=== PATIENT | male | born 1965 | race African-American/Black ===

== ENCOUNTER 2022-05-19 19:59 | Emergency (ER) | payer SELFPAY ==
[~2022-05-19] VITALS: Ht 175.3 cm; Wt 100.0 kg
[2022-05-19 20:15] VITALS: BP 142/78
[2022-05-20] MEDS ORDERED: HALOPERIDOL LACTATE 5MG/ML VIAL IM ONE (00:30)
[2022-05-20] MEDS ORDERED: DIPHENHYDRAMINE 50MG/ML VIAL IM ONE (00:30)
[2022-05-20 01:07] LABS: BASOPHILS % 1.1 % (0.0-2.0); EOSINOPHILS % 2.4 % (0.0-5.0); HEMOGLOBIN. 12.6 g/dL (14.0-18.0); LYMPHOCYTES % 19.2 % (20.0-50.0); MEAN CORPUSCULAR HEMOGLOBIN 28.1 pg (28.0-32.0); MEAN CORPUSCULAR VOLUME 86.8 fL (80.0-94.0); MEAN PLATELET VOLUME 8.4 fl (7.4-10.4); MONOCYTES % 8.4 % (2.0-8.0); NEUTROPHILS % 68.9 % (40.0-76.0); PLATELET 318 x1000/uL (130-400); RED CELL DISTRIBUTION WIDTH 20.2 % (11.6-14.6)
[2022-05-20 01:09] LABS: CHLORIDE 106 mEq/L (98-107)
[2022-05-20 01:16] LABS: ETHANOL BLOOD 28 mg/dL
== END 2022-05-20 04:56 | disposition home or self-care (01) ==
LOC: ER 19:59
DX: F23 Brief psychotic disorder (principal); R07.89 Other chest pain; R06.02 Shortness of breath; I10 Essential (primary) hypertension
CPT/HCPCS: 36415; 80048; 80307; 80320; 80329; 85025; 93005; 96372; 99284; J1200; J1630; G0480

== ENCOUNTER 2022-09-29 06:25 | Emergency (ER) | payer MEDICAID ==
[~2022-09-29] VITALS: Ht 180.3 cm; Wt 100.0 kg
[~2022-09-29 06:25] MED LIST: ATOR20TA PO; DILT240C94 MT; LOSA50TA3 PO; PHEN100C4 MT; TUSSL PO
[2022-09-29] MEDS ORDERED: LOSA50TA41 PO (12:07)
[2022-09-29] MEDS ORDERED: HYDR-4009 PO (12:07)
[2022-09-29] MEDS ORDERED: DILT240T12 PO (12:07)
[2022-09-29] MEDS ORDERED: PHEN100C4 PO (12:07)
[2022-09-29] MEDS ORDERED: ATOR20TA65 PO (12:07)
[2022-09-29 12:34] VITALS: BP 136/65
== END 2022-09-29 12:36 | disposition home or self-care (01) ==
LOC: ER 06:25
DX: R05.8 Other specified cough (principal); R09.81 Nasal congestion; R07.89 Other chest pain; Z76.0 Encounter for issue of repeat prescription; I10 Essential (primary) hypertension; G40.909 Epilepsy, unspecified, not intractable, without status epilepticus; I49.3 Ventricular premature depolarization
CPT/HCPCS: 71045; 93005; 99283

== ENCOUNTER 2022-10-29 01:35 | Emergency (ER) | payer MEDICAID ==
[~2022-10-29] VITALS: Ht 182.9 cm; Wt 91.0 kg
[~2022-10-29 01:35] MED LIST changes: +ATOR20TA65 PO; +DILT240T12 PO; +HYDR-4009 PO; +LOSA50TA41 PO; +PHEN100C4 PO
[2022-10-29 04:33] VITALS: BP 170/90
[2022-10-29] MEDS ORDERED: IBUPROFEN 600MG TABLET PO STA (04:33)
[2022-10-29] MEDS ORDERED: PHENYTOIN SODIUM EXTENDED 100MG CAPSULE PO ONE (04:45)
[2022-10-29] MEDS ORDERED: PHEN100C4 PO (05:51)
[2022-10-29] MEDS ORDERED: LOSA50TA41 PO (05:51)
[2022-10-29] MEDS ORDERED: NAPR-681 PO (05:51)
[2022-10-29] MEDS ORDERED: TUSSL PO (05:54)
== END 2022-10-29 06:26 | disposition home or self-care (01) ==
LOC: ER 01:35
DX: G40.909 Epilepsy, unspecified, not intractable, without status epilepticus (principal); J06.9 Acute upper respiratory infection, unspecified; I10 Essential (primary) hypertension; F15.10 Other stimulant abuse, uncomplicated; Z20.1 Contact with and (suspected) exposure to tuberculosis; Z79.899 Other long term (current) drug therapy
CPT/HCPCS: 71045; 99283